=== PATIENT | female | born 2000 | race Caucasian/White ===

== ENCOUNTER 2021-01-02 18:52 | Emergency (ER) | payer OTHER ==
[2021-01-02 19:18] LABS: BASOPHILS % (AUTO) 0.3 %; EOSINOPHILS % (AUTO) 0.1 %; HCT - HEMATOCRIT 41.6 % (37.0-47.0); HGB - HEMOGLOBIN 13.4 g/dL (12.0-16.0); LYMPHOCYTES # (AUTO) 1.3 10^3/uL (1.5-3.5); LYMPHOCYTES % (AUTO) 10.9 %; MEAN CORPUSCULAR HEMOGLOBIN 29.4 pg (27.0-31.0); MEAN CORPUSCULAR HGB CONC 32.2 g/dL (32.0-36.0); MEAN CORPUSCULAR VOLUME 91.2 fL (81.0-99.0); MEAN PLATELET VOLUME 12.6 fL (7.9-10.8); MONOCYTES % (AUTO) 8.1 %; NEUTROPHILS # (AUTO) 9.8 10^3/uL (1.5-6.6); NEUTROPHILS % (AUTO) 80.4 %; PLT - PLATELET COUNT 223 10^3/uL (130-450); RED BLOOD COUNT 4.56 10^6/uL (4.20-5.40); WHITE BLOOD COUNT 12.1 x10^3/uL (4.8-10.8)
[2021-01-02 19:29] LABS: MUDS CUTOFF CONCENTRATIONS CUTOFF CONC BELOW:
[2021-01-02 19:32] LABS: GLUCOSE, URINE (UA) NEGATIVE (NEGATIVE); KETONES,URINE (UA) >=80 mg/dL (NEGATIVE); LEUKOCYTE ESTERASE, URINE NEGATIVE (NEGATIVE); NITRITE,URINE NEGATIVE (NEGATIVE); OCCULT BLOOD,URINE NEGATIVE (NEGATIVE); PH,URINE 6.5 PH (5.0-7.5); PROTEIN,URINE 30 mg/dL (NEGATIVE); UROBILINOGEN,URINE 1 (NORMAL) E.U./dL (NORMAL)
[2021-01-02 19:34] LABS: ACETAMINOPHEN < 10 ug/mL (10-30); ALBUMIN 4.5 g/dL (3.2-5.5); ALBUMIN/GLOBULIN RATIO 1.2 (1.0-2.2); ALKALINE PHOSPHATASE 60 IU/L (42-121); ALT ALANINE AMINOTRANSFERASE 93 IU/L (10-60); AST ASPARTATE AMINOTRANSFERASE 49 IU/L (10-42); BUN - BLOOD UREA NITROGEN 10 mg/dL (6-20); CALCIUM 9.5 mg/dL (8.5-10.3); CARBON DIOXIDE - CO2 26 mmol/L (21-32); CHLORIDE 100 mmol/L (101-111); CREATININE 0.8 mg/dL (0.4-1.0); ETOH - ETHANOL < 5.0 mg/dL; GFR - MDRD 91 (>89); GLUCOSE 82 mg/dL (70-100); LIPASE 23 U/L (22-51); POTASSIUM 3.7 mmol/L (3.5-5.0); SALICYLATE < 6.0 mg/dL; SODIUM 141 mmol/L (135-145); TOTAL PROTEIN 8.3 g/dL (6.7-8.2)
[2021-01-02 19:38] LABS: BILIRUBIN,URINE NEGATIVE (NEGATIVE); CLARITY,URINE CLEAR (CLEAR); HCG UR QUAL NEGATIVE; ICTOTEST,URINE NEGATIVE
[2021-01-02] MEDS ORDERED: TETANUS/DIPHTHERIA/PERTUSSIS 0.5 ML SYRINGE IM ONE (19:49)
--- NOTE | 2021-01-02 19:50 | ED Physician Documentation ---
PD HPI MHE - Stated complaint Stated Complaint: SI/ R WRIST LAC - Chief complaint Chief Complaint: MHE - History obtained from History obtained from: Patient - Additional information Additional information: Presents by ambulance after cutting herself on the right wrist. She is suicidal with hopelessness related to being stationed here in not having any friends or family around. Has never been under treatment for depression or psychiatric issues. Review of Systems Ten Systems: 10 systems reviewed and negative Constitutional: reports: Reviewed and negative Eyes: reports: Reviewed and negative Ears: reports: Reviewed and negative Nose: reports: Reviewed and negative PD PAST MEDICAL HISTORY - Past Medical History Past Medical History: No - Past Surgical History Past Surgical History: No - Allergies Allergies/Adverse Reactions: Allergies Allergy/AdvReac Type Severity Reaction Status Date / Time No Known Drug Allergies Allergy Verified 01/02/21 18:57 - Social History Does the pt smoke?: No Smoking Status: Never smoker Does the pt drink ETOH?: No Does the pt have substance abuse?: No - Immunizations Immunizations are current?: Yes - POLST Patient has POLST: No PD ED PE NORMAL - Vitals Vital signs reviewed: Yes - General General: Alert and oriented X 3, No acute distress - HEENT HEENT: PERRL, EOMI, Pharynx benign - Neck Neck: Supple, no meningeal sign, No bony TTP - Cardiac Cardiac: RRR, No murmur - Respiratory Respiratory: No respiratory distress, Clear bilaterally - Abdomen Abdomen: Normal bowel sounds, Soft, Non tender - Back Back: No CVA TTP, No spinal TTP - Derm Derm: Normal color, Warm and dry - Extremities Extremities: No edema, No calf tenderness / cord - Neuro Neuro: Alert and oriented X 3, No motor deficit, No sensory deficit, Normal speech - Psych Psych: Normal mood, Normal affect Results - Vitals Vitals: Vital Signs - 24 hr 01/02/21 01/02/21 01/03/21 18:57 19:02 00:15 Temperature 36.8 C 36.8 C 36.3 C L Heart Rate 100 100 80 Respiratory 16 16 16 Rate Blood Pressure 129/89 H 129/89 H 123/73 O2 Saturation 94 94 99 01/03/21 06:45 Temperature 36.5 C Heart Rate 70 Respiratory 14 Rate Blood Pressure 120/68 O2 Saturation 100 Oxygen O2 Source Room air - Labs Labs: Laboratory Tests 01/02/21 01/02/2101/02/21 19:11 19:11 19:11 WBC 12.1 H RBC 4.56 Hgb 13.4 Hct 41.6 MCV 91.2 MCH 29.4 MCHC 32.2 RDW 13.0 Plt Count 223 MPV 12.6 H Neut # (Auto) 9.8 H Lymph # (Auto) 1.3 L [place] # (Auto) 1.0 Eos # (Auto) 0.0 Baso # (Auto) 0.0 Absolute Nucleated RBC 0.00 Nucleated RBC % 0.0 Sodium 141 Potassium 3.7 Chloride 100 L Carbon Dioxide 26 Anion Gap 15.0 H BUN 10 Creatinine 0.8 Estimated GFR (MDRD) 91 Glucose 82 Calcium 9.5 Total Bilirubin 2.0 H AST 49 H ALT 93 H Alkaline Phosphatase 60 Total Protein 8.3 H Albumin 4.5 Globulin 3.8 Albumin/Globulin Ratio 1.2 Lipase 23 TSH 1.35 Urine Color Urine Clarity Urine pH Ur Specific [place] Urine Protein Urine Glucose (UA) Urine Ketones Urine Occult Blood Urine Nitrite Urine Bilirubin Urine Urobilinogen Ur Leukocyte Esterase Urine RBC Urine WBC Ur Squamous Epith Cells Urine Bacteria Urine Mucus Ur Microscopic Review Urine Culture Comments Urine HCG, Qual Nasal Adenovirus (PCR) Nasal B. parapertussis DNA (PCR) Nasal Coronavir 229E PCR Nasal Coronavir HKU1 PCR Nasal Coronavir NL63 PCR Nasal Coronavir OC43 PCR Nasal Enterovir/Rhinovir PCR Nasal Influenza B PCR Nasal Influenza A PCR Nasal Parainfluen 1 PCR Nasal Parainfluen 2 PCR Nasal Parainfluen 3 PCR Nasal Parainfluen 4 PCR Nasal RSV (PCR) Nasal B.pertussis DNA PCR Nasal C.pneumoniae (PCR) Danny Human Metapneumo PCR Nasal M.pneumoniae (PCR) Nasal SARS-CoV-2 (PCR) Salicylates < 6.0 Urine Opiates Screen Ur Oxycodone Screen Urine Methadone Screen Ur Propoxyphene Screen Acetaminophen < 10 L Ur Barbiturates Screen Ur Tricyclics Screen Ur Phencyclidine Scrn Ur Amphetamine Screen U Methamphetamines Scrn U Benzodiazepines Scrn Urine Cocaine Screen U Cannabinoids Screen Ethyl Alcohol < 5.0 01/02/21 01/02/21 19:23 19:23 WBC RBC Hgb Hct MCV MCH MCHC RDW Plt Count MPV Neut # (Auto) Lymph # (Auto) [place] # (Auto) Eos # (Auto) Baso # (Auto) Absolute Nucleated RBC Nucleated RBC % Sodium Potassium Chloride Carbon Dioxide Anion Gap BUN Creatinine Estimated GFR (MDRD) Glucose Calcium Total Bilirubin AST ALT Alkaline Phosphatase Total Protein Albumin Globulin Albumin/Globulin Ratio Lipase TSH Urine Color YELLOW Urine Clarity CLEAR Urine pH 6.5 Ur Specific [place] >=1.030 H Urine Protein 30 H Urine Glucose (UA) NEGATIVE Urine Ketones >=80 H Urine Occult Blood NEGATIVE Urine Nitrite NEGATIVE Urine Bilirubin NEGATIVE Urine Urobilinogen 1 (NORMAL) Ur Leukocyte Esterase NEGATIVE Urine RBC 0-5 Urine WBC 6-10 H Ur Squamous Epith Cells FEW Squamous Urine Bacteria Few Urine Mucus Marked Strands Ur Microscopic Review INDICATED Urine Culture Comments NOT INDICATED Urine HCG, Qual NEGATIVE Nasal Adenovirus (PCR) NOT DETECTED Nasal B. parapertussis DNA (PCR) NOT DETECTED Nasal Coronavir 229E PCR NOT DETECTED Nasal Coronavir HKU1 PCR NOT DETECTED Nasal Coronavir NL63 PCR NOT DETECTED Nasal Coronavir OC43 PCR NOT DETECTED Nasal Enterovir/Rhinovir PCR DETECTED A Nasal Influenza B PCR NOT DETECTED Nasal Influenza A PCR NOT DETECTED Nasal Parainfluen 1 PCR NOT DETECTED Nasal Parainfluen 2 PCR NOT DETECTED Nasal Parainfluen 3 PCR NOT DETECTED Nasal Parainfluen 4 PCR NOT DETECTED Nasal RSV (PCR) NOT DETECTED Nasal B.pertussis DNA PCR NOT DETECTED Nasal C.pneumoniae (PCR) NOT DETECTED Danny Human Metapneumo PCR NOT DETECTED Nasal M.pneumoniae (PCR) NOT DETECTED Nasal SARS-CoV-2 (PCR) NOT DETECTED Salicylates Urine Opiates Screen NEGATIVE Ur Oxycodone Screen NEGATIVE Urine Methadone Screen NEGATIVE Ur Propoxyphene Screen NEGATIVE Acetaminophen Ur Barbiturates Screen NEGATIVE Ur Tricyclics Screen NEGATIVE Ur Phencyclidine Scrn NEGATIVE Ur Amphetamine Screen NEGATIVE U Methamphetamines Scrn NEGATIVE U Benzodiazepines Scrn NEGATIVE Urine Cocaine Screen NEGATIVE U Cannabinoids Screen NEGATIVE Ethyl Alcohol PD MEDICAL DECISION MAKING - ED course ED course: 20-year-old woman with acute loneliness and relationship that she issues pre sents with suicidal ideation. Seen overnight by telepsych who recommended inpatient admission. Subsequently seen by social work and was no longer suicidal and therefore reportedly did not fit criteria for inpatient admission. A safety plan was formulated by the social worker palliative care. Departure - Departure Disposition: 01 Home, Self Care Clinical Impression: Suicidal ideation Depression Qualifiers: Depression Type: major depressive disorder Major depression recurrence: single episode Active/Remission status: currently active Major depression episode severity: moderate Qualified Code(s): F32.1 - Major depressive disorder, single episode, moderate Condition: Good Record reviewed to determine appropriate education?: Yes Instructions: ED Depression Comments: Mildly elevated liver enzymes of unclear chronicity. This should be followed by your primary care physician. Return for new or worsening symptoms. Follow the instructions of the social worker palliative care regarding close outpatient treatment. It sounds like the out reach social worker palliative care will also reach out to you. Return anytime if worsening or if suicidal ideation recurs.
[2021-01-02 19:55] LABS: AMPHETAMINE SCREEN,URINE NEGATIVE (NEGATIVE); BARBITURATE SCREEN,UR NEGATIVE (NEGATIVE); BENZODIAZEPINES SCREEN, URINE NEGATIVE (NEGATIVE); COCAINE SCREEN URINE NEGATIVE (NEGATIVE); METHADONE SCREEN, URINE NEGATIVE (NEGATIVE); METHAMPHETAMINES SCREEN, URINE NEGATIVE (NEGATIVE); OPIATE SCREEN, URINE NEGATIVE (NEGATIVE); OXYCODONE SCREEN, URINE NEGATIVE (NEGATIVE); PROPOXYPHENE SCREEN, URINE NEGATIVE (NEGATIVE); THC CANNABINOID SCREEN, URINE NEGATIVE (NEGATIVE); TRICYCLIC ANTIDEPRESSANT,URINE NEGATIVE (NEGATIVE)
[2021-01-02 19:59] LABS: BACTERIA,URINE Few /HPF (None Seen); MUCUS,URINE Marked Strands; RBC,URINE 0-5 /HPF (0-5); SQUAMOUS EPITHELIAL CELL,UR FEW Squamous (<= Few)
[2021-01-02 20:23] LABS: CORONAVIRUS 229E-RESP PCR NOT DETECTED; CORONAVIRUS HKU1-RESP PCR NOT DETECTED; CORONAVIRUS NL63-RESP PCR NOT DETECTED; CORONAVIRUS OC43-RESP PCR NOT DETECTED; HUMAN METAPNEUMOVIRUS NOT DETECTED; SARS-CoV-2 -RESP PCR PANEL NOT DETECTED
[2021-01-02 20:24] LABS: B. PARAPERTUSSIS- RESP PCR PAN NOT DETECTED; B. PERTUSSIS- RESP PCR PANEL NOT DETECTED; C. PNEUMONIAE- RESP PCR PANEL NOT DETECTED; INFLUENZA A- RESP PCR PANEL NOT DETECTED; INFLUENZA B - RESP PCR PANEL NOT DETECTED; M. PNEUMONIAE- RESP PCR PANEL NOT DETECTED; PARAINFLUENZA VIRUS 1 NOT DETECTED; PARAINFLUENZA VIRUS 2 NOT DETECTED; PARAINFLUENZA VIRUS 3 NOT DETECTED; PARAINFLUENZA VIRUS 4 NOT DETECTED; RHINOVIRUS/ENTEROVIRUS DETECTED; RSV- RESP PCR PANEL NOT DETECTED
[2021-01-02] MEDS ORDERED: IBUPROFEN 800 MG TABLET PO STA (21:27)
--- NOTE | 2021-01-02 21:57 | TELEPSYCH PHYS NOTE ---
Telepsych Note - SI/HI/SELF HARM SI/HI/SELF HARM (CURRENT OR HISTORY OF):: Cutting <Laith Key - Last Filed: 01/04/21 06:18> - SI/HI/SELF HARM SI/HI/SELF HARM (CURRENT OR HISTORY OF):: Cutting - PSYCHIATRIC HX/TREATMENT HX Psychiatric: None, Bipolar disorder - DRUG/ALCOHOL HX Substance Use and Type: Marijuana (see above) ETOH Use: Other - MEDICAL HX Does the pt have a hx of MRSA?: No Neurological History: None Eyes, Ears, Nose, Throat: None Cardiovascular: None Respiratory: None Skin: None Endocrine/Autoimmune: None Gastrointestinal: None Is Patient ?: No Urinary: None Musculoskeletal: None Blood Disorders: None - TIME SPENT & PROVIDER LOCATION Telepsych consultation conducted via videoconferencing: Yes (31min) List names and roles of persons who participated in consult: [email or web address] Telepsych Provider Location: [place] Time Telepsych consult began: 21:11 (EST) Time Telepsych consult completed: 21:36 (EST) <Dania Foley - Last Filed: 01/21/21 12:55> - CHIEF COMPLAINT/HX OF PRESENT ILLNESS Chief Complaint and History of Present Illness: Y[employer] Name: Carolina Kumar :2000 Date: 01/03/21 Time:0036 EST Location of patient: [facility] Location of doctor: [place] Length of consult: 31 min This evaluation was conducted via telepsychiatry with the assistance of onsite staff Reason for consult: suicidal ideations Requested by: Dr. Hill History of Present Illness: 20 year old female with no previous psychiatric history who presented to the ED via EMS after cutting herself in a suicide attempts. She was agreeable tot eh interview. She reports that 3 weeks ago her was stationed in [facility]. She reports that before they were isolated and did well together. She reports that since moving here they have been going out a lot and that the socialization was too much for her and she started staying home. She reports that her and her have been arguing a lot. She reports that her wants nothing to do with her and is sleeping in a separate room. She reports that her told her to move back to [place]. She reports that she has been verbally mean to her and she feels all alone. She reports she always has the drama of her family too as her parents are both addicts . she reports that her sleep has been off and on and she has not been able to sleep until 2:30 AM some nights. Some days she struggles to wake up. She reports she has not ate in 2 weeks. She reports decreased energy and motivation. She reports that she has been thinking about ending her life for 3 days. her went out tonight with friends and she reports that she could not take it anymore. She reports that she does not want to live anymore. She denies homicidal ideations intents or plans she denies auditory or visual hallucinations Collateral contacted (Y/N) no____. Name Phone #? , Relationship to the patient . If N, (No Answer/None available/Patient meets criteria for admission/Other free text reason) she meet admission criteria Sleep issues: Y - Quantity: 6-7 Quality: restless Psychiatric History/Treatment History: denies Past diagnoses: denies Hospitalizations: (Y/N) if Y describe: Current Treatment: Medication management (Y/N) Therapy (Y/N) Suicide Assessment: PSS-3: 1) Over the past 2 weeks have you felt down, depressed or hopeless? (Y/N)yes 2) Over the past 2 weeks have you had thoughts of killing yourself? (Y/N)yes 3) Have you ever in your life attempted to kill yourself? (Y/N)yes If yes, then when? Within the past 24h? yes, past month? N), between 1-6 months N), > 6 months N) PSS-3 Secondary Screen If #2 is yes or #3 is yes within the past 6 months, then complete secondary screen: 1) Positive on PSS-3 questions 2 & 3 active SI with a past attempt? (Y/N) no 2) Have you been thinking about how you might kill yourself? (Y/N)yes 3) Have you had some intention of acting on your thoughts? (Y/N)yes 4) Lifetime psychiatric hospitalization? (Y/N)none 5) Has drinking or substance abuse ever been a problem for you? (Y/N)no 6) Current irritability, agitation, or aggression? (Y/N) no PSS-3 Secondary Screen Scoring: (Mild/Moderate/Severe) Mild (0-2) No current attempt and no plan/intent Moderate (3-4) No current attempt, Plan OR intent but not both Severe (5-6) Current [facility] with [facility] AND [facility] Safety Assessment: Risk Factors ; family history Stressors: recent move Attempts/Self-injury: Y/N if Y then describe: yes cut self Impulsivity: Y/N if Y then describe : denies Drug/Alcohol History: Y/N - if Y then describe: vapes, socially drinks. Has used marijuana in the past Trauma history: Y/N - if Y then describe: denies Access to firearms: Y/N - if Y then describe: denies HI/Violence/Property destruction: Y/N - if Y then describe: denies Legal: Y/N - if Y then describe: denies Family Psych History: Y/N - if Y then describe: parents - drugs Family History of suicide: (Y/N) no Protective Factors Internal: unknown External: Social supports/ Therapeutic relationships: Y/N - if Y then describe : none Relationship history: 1 years Living situation: Homeless Y/N if no describe: with Employment: Y/N - if Y then describe: at a [employer] Education: 12th grade Responsibility to family/children/work: Y/N - if Y then describe: work Future orientation: Y/N - if Y then describe: no Medical History: denies Medications & Freq: denies Allergies: NKDA Mental Status Exam: Appearance and attire: she is casually groomed and dressed Attitude and behavior: calm and cooperative Psychomotor agitation/abnormal movements: normal Speech: normal rate with anxious undertones Affect and mood: tearful, depressed Association and thought processes: organized Thought content: she is negativistic, feels worthless and useless and alone Perception: no AH/VH Sensorium, memory, and orientation: alert and oriented times 3 Intellectual functioning: average Insight and judgment: limited Impression/Risk Assessment: Current Suicide Risk (Elevated? Y/N): yes Current Violence Risk (Elevated? Y/N): no Ability to care for self: Y/N no Summary: 20 year old female with no known psychiatric history who presented to the ED with suicidal ideations after cutting her self in a suicide attempt. She has had a recent move and is isolated from her support system. She has difficulty with her marriage and feels lonely, and worthless. She reports no desire to live. At this time she meets inpatient psychiatric hospitalization criteria. Recommend inpatient treatment Diagnosis: Adjustment disorder with depressed mood r/o MDD CPT code: 19980 Treatment Plan Level of Care: recommend inpatient Psychiatric Clearance: no Observation level close observation Pharmacological: none at this time Patient psychotic? Y/N if Y was standing antipsychotic medication started Y/N no Therapy: supportive Discussed plan with onsite forensics team director, who? (Y/N): Who Dr. Key Other: Dania Foley MD (Dania Foley) - VIOLENCE/LEGAL/COLLATERAL Violence - Legal - Collateral: seep HPI (Dania Foley) - PSYCHIATRIC HX/TREATMENT HX Psychiatric/Treatment Hx Other: see above (Dania Foley) - DRUG/ALCOHOL HX Substance use/abuse/alcohol text: socially drinks (Dania Foley) - HOME MEDICATIONS Home Meds (as last confirmed): defer to inpatient admitting physician (Dania Foley) - ALLERGIES Allergies (as last confirmed): Allergies Allergy/AdvReac Type Severity Reaction Status Date / Time No Known Drug Allergies Allergy Verified 01/02/21 18:57 - TREATMENT/PHARMACOLOGICAL RECOMMENDATION Treatment - Pharmacological - Therapy Recommendations: see above (Dania Foley)
[2021-01-03 22:19] VITALS: BP 141/67
== END 2021-01-04 | disposition home or self-care (01) ==
LOC: ED 18:52
DX: S61.511A Laceration without foreign body of right wrist, initial encounter (principal); X78.9XXA Intentional self-harm by unspecified sharp object, initial encounter; F32.1 Major depressive disorder, single episode, moderate; Z23 Encounter for immunization; Z20.822 Contact with and (suspected) exposure to COVID-19
CPT/HCPCS: 0202U; 36415; 80053; 80306; 80307; 80320; 80329; 81001; 81025; 83690; 84443; 85025; 90471; 90715; 99283; 99284; A9270; G0425; Q3014; 81003; 87086